=== PATIENT | female | born 1930 | race Caucasian/White ===

== ENCOUNTER 2016-10-09 12:07 | Inpatient (IN) | payer MEDICARE ==
[~2016-10-09] VITALS: Ht 149.9 cm; Wt 38.1 kg
--- NOTE | ~2016-10-09 | DS ---
PATIENT:THERESE BILLINGSLEY :30 MEDICAL RECORD: [id number] DISCHARGE SUMMARY ADMISSION DATE: 10/09/16 DISCHARGE DATE: 10/31/16 DATE OF ADMISSION: 10/09/2016. DATE OF DISCHARGE: 10/31/2016. HISTORY: An 86-year-old single white female who had been referred by her caregiver. The patient had been showing worsened confusion, especially in the evenings. The patient had been exhibiting severe anxiety as well. She had already been started on memory enhancing medications, but confusion had continued to progress. For further details, please see previously dictated history. COURSE IN THE HOSPITAL: The patient was assessed by Dr. Burroughs for medical care. Dr. Burroughs noted the presence of chronic obstructive pulmonary disease, glaucoma, and osteoporosis. From a treatment standpoint, the patient was started on trazodone 150 mg nightly for insomnia. She was maintained on Risperdal dosage and was stabilized at 0.125 mg twice a day. She was given Megace to enhance appetite. She was maintained on Exelon 3 mg b.i.d. and Lexapro 10 mg daily for depressive symptoms. Other medications that were included and included vitamin D supplements, Travatan eye drops, docusate, artificial tears, Ventolin inhaler, and Ara. The patient showed slow, but steady progress in terms of her confusion and anxiety. Case management maintained close contact with her caregiver. Eventually, the decision was made to admit to the [facility]. The patient was discharged in stable condition. FINAL DIAGNOSES: AXIS I: Alzheimer dementia with behavioral disturbance. AXIS II: No diagnosis. AXIS III: Chronic obstructive pulmonary disease, osteoporosis, glaucoma. AXIS IV: Moderate. AXIS V: 40. PLAN: 1. The patient is discharged on current medications. 2. Diet and activities as tolerated. 3. Follow up through primary care physician. TRANSINT:[id number] Voice Confirmation ID: [id number] DOCUMENT ID: [id number] TEJAL ZUNIGA III, MD CC: [id number] DICTATION DATE: 10/31/16 1138 QUALITATIVE FIELD COORDINATOR: 11/01/16 0257 DIS IN 10/31/16 [place] [address]
--- NOTE | 2016-10-09 15:15 | NUR ---
RECEIVED PATIENT FROM HOME, ARRIVED WITH MAGDALENA ALMENDAREZ AND PAID CAREGIVER. ABLE TO VERBALIZE NAME , REQUIRED ASSISTANCE FROM POJuan Diego FOR . PATIENT DOES HAVE HISTORY OF [facility] LIVES AT HOME WITH 24/7 CARE. HAS BE HAVING INCRESED SUNDOWNERS, CONFUSION AND AGITATION WITH ANXIETY. HAS BEEN DIFFICULT FOR THEM TO CARE FOR HER WHEN SHE IS HAVING THESE INCREASD BEHAVIORS. CONSENT FORMS SIGNED PER MAGDALENA, DISCUSSED CODE STATUS, AND MAGDALENA HAS ADVANCED DIRECTIVE FOR DNR, VERBALIZED UNDERSTANDING OF NO CODE STATUS SHE VERBALIZES NO DNR FOR PATIENT.
[2016-10-09 15:30] VITALS: BP 133/73
[2016-10-09] MEDS ORDERED: SEROQUEL50 MG PO ×2 (18:28→21:00)
[2016-10-09] MEDS ORDERED: RIVASTIGMINE1.5 MG PO (18:29)
[2016-10-09] MEDS ORDERED: KLONOPIN1 MG PO ×2 (18:30→20:59)
[2016-10-09] MEDS ORDERED: SYMBICORT 16010.2 GM INH (18:31)
[2016-10-09] MEDS ORDERED: DESERYL100 MG PO ×2 (18:31→20:58)
[2016-10-09] MEDS ORDERED: FEXOFENADINE H180 MG PO (18:32)
[2016-10-09] MEDS ORDERED: SURFAK240 MG PO ×2 (18:32→21:01)
[2016-10-09] MEDS ORDERED: TRAVATAN Z2.5 ML EACH EYE ×2 (18:33→21:01)
[2016-10-09] MEDS ORDERED: OS-CAL 500+D TA1 TAB PO (18:33)
[2016-10-09] MEDS ORDERED: ALENDRONATE SOD70 MG PO (18:34)
[2016-10-09] MEDS ORDERED: MUCINEX600 MG PO ×2 (18:35→20:59)
[2016-10-09] MEDS ORDERED: ACETAMINOPHEN500 M1 PO (18:37)
[2016-10-09] MEDS ORDERED: ARTIFICIAL TEAR15 ML EACH EYE (18:38)
[2016-10-09 18:39] LABS: BASOPHILS 0.5 % (0-2); EOSINOPHILS 0.5 % (0-7); IMMATURE GRANULOCYTES 0.2 % (0-5); LYMPHOCYTES 21.3 % (15-50); MCH 28.7 pg (26.0-34.0); MCHC 32.5 g/dL (31.0-37.0); MCV 88.3 fL (80.0-100.0); MEAN PLATELET VOLUME 10.9 fL (7.4-10.4); MONOCYTES 7.3 % (2-11); NEUTROPHILS 70.2 % (40-80); PLATELET COUNT 208 10x3/uL (130-400); RBC 4.53 10x6/uL (4.00-5.40); RDW 14.8 % (11.5-14.5); WBC 6.5 10x3/uL (4.8-10.8)
[2016-10-09] MEDS ORDERED: PROAIR HFA8.5 GM INH (18:39)
[2016-10-09 18:51] LABS: HEMOGLOBIN A1C 5.8 % (4.8-6.0)
[2016-10-09 19:05] LABS: ALBUMIN 3.8 g/dL (3.4-5.0); ANION GAP 11.6 mmol/L (8-16); BILIRUBIN - TOTAL 0.66 mg/dL (0.2-1.3); CARBON DIOXIDE 29.1 mmol/L (21.0-32.0); CREATININE - SERUM 1.1 mg/dL (0.6-1.3); LDL-HDL RATIO 0.9 ratio (1.5-3.5); POTASSIUM - SERUM 3.7 mmol/L (3.5-5.1); PROTEIN - SERUM 6.6 g/dL (6.4-8.2); THYROID STIMULATING HORMONE 0.17 uIU/mL (0.36-3.74)
[2016-10-09 19:50] VITALS: BP 126/65
[2016-10-10 00:12] VITALS: BP 149/86
[2016-10-10 00:18] VITALS: BP 133/73; BMI 18.6
--- NOTE | 2016-10-10 00:40 | NUR ---
B) Recieved sitting in a wheelchair in the day room , alert and oriented to self, ambulates at times, unsteady gait, I) no medications this shift, monitored for falls and safety, R) resting quietly in bed, P) Continue plan of care.
[2016-10-10 14:20] VITALS: BMI 18.5
[2016-10-10 19:05] VITALS: BP 129/84
--- NOTE | 2016-10-10 23:19 | NUR ---
B) Recieved patient in the day room sitting in a chair, alert and oreinted to self, ambulated from chair to chair at times, unsteady gait, restless at times, I) Administered perscribed medications, monitored for falls and safety, redirected as needed, R) Medication compliant, restless, stays in bed only 2-4 hours at a time, P) Continue plan of care.
--- NOTE | 2016-10-11 05:29 | PSY ---
PATIENT NAME:THERESE BILLINGSLEY MEDICAL RECORD: [id number] : 30 LOCATION:[facility] [address] ADMISSION DATE: 10/09/16 ACCOUNT: [id number] PSYCHIATRIC EVALUATION DATE OF EVALUATION: 10/10/16 FINDINGS: An 86-year-old single white female who was referred by her caregiver. This patient lives at home and has been showing markedly worsened confusion, especially in the evenings. She has had episodes of disorientation and agitation as well. These symptoms have progressively worsened. The patient has been treated by her primary care physician with a variety of any anxiety medications most recently Seroquel had been added along with Klonopin. However, the patient has continued to show evidence of deterioration. The patient had also been started on rivastigmine 1.5 mg twice a day. Because of worsening confusion and agitated behavior, the patient has been admitted. PAST MEDICAL HISTORY: Significant for inhalant allergies and occasional constipation, but otherwise remarkably clear. MEDICATION: At the time of admission included guaifenesin, Ara, artificial tears, travoprost eyedrops, trazodone for insomnia, stool softeners, vitamin C and D supplements and ProAir inhaler p.r.n. FAMILY HISTORY: Noncontributory. SOCIAL HISTORY: The patient does not have any family living nearby. She is cared for by a caregiver. ALLERGIES: THE PATIENT IS ALLERGIC TO SULFONAMIDE ANTIBIOTICS. REVIEW OF SYSTEMS: Noncontributory. MENTAL STATUS: On exam, the patient is pleasant, but clearly extremely confused. She is oriented only to person. When she was told she was in the hospital she seemed genuinely surprised. She seemed to forget this information quite quickly. Mood was somewhat anxious. Affect was shallow, but superficially pleasant. Speech showed latency word finding pauses and flow of thought was tangential. Content of thought was negative for overt psychosis. The patient was oriented only to person. She shows global memory impairment. DIAGNOSTIC IMPRESSION: AXIS I: Alzheimer dementia with behavioral disturbance. AXIS II: No diagnosis. AXIS III: Inhalant allergies, occasional constipation. AXIS IV: Moderate. AXIS V: 38. PLAN: 1. The patient is admitted for reevaluation and medication adjustment. 2. We will give neuropsychological testing. 3. Daily supportive therapy. TRANSINT:[id number] Voice Confirmation ID: [id number] DOCUMENT ID: [id number] TEJAL ZUNIGA III, MD at 0529 CC: [id number] DICTATION DATE: 10/10/16 1144 LUMBER SCALER: 10/10/16 1607 ADM IN [facility] [address] [id number]
[2016-10-11 08:00] VITALS: BP 135/68
[2016-10-11 08:23] LABS: FOLATE (FOLIC ACID) - SERUM >20.0 ng/mL (>3.0); VITAMIN D 25 HYDROXY 40.9 ng/mL (30.0-100.0)
--- NOTE | 2016-10-11 09:00 | NUR ---
B) PATIENT IS ANXIOUS AND VERY CONFUSED, GRABS THIS NURSE EVERY TIME I WALK BY, SHE IS UNSTEADY AND STANDS AND WALKS. I) PROVIDE PRESCRIBED MEDS, REDIRECT NEEDED. R) PATIENT IS COMPLIANT WITH MEDS AND UNIT MILIEU. P) CONTINUE PLAN OF CARE.
[2016-10-11 19:30] VITALS: BP 166/71
--- NOTE | 2016-10-11 22:21 | PN ---
PATIENT:THERESE BILLINGSLEY MEDICAL RECORD: [id number] LOCATION:ЮЛИЯ [facility] ADMISSION DATE: 10/09/16 PROGRESS NOTE DATE OF SERVICE: 10/11/2016 SUBJECTIVE: The patient states that she is being abused. OBJECTIVE: The patient has been rather poorly cooperative. She is very anxious. Eating is rather poor; however, she did sleep fairly well. She does require redirection. On exam, mood is irritable. Affect is brittle. Speech is rapid and almost pressured. Flow of thought is tangential. Content of thought is positive for nonspecific paranoid ideation. Sensorium shows no improvement. ASSESSMENT: No change in diagnosis. PLAN: 1. We will continue with routine benzodiazepines. 2. We will add Megace. 3. Continue other medications and supportive therapy. TRANSINT:[id number] Voice Confirmation ID: [id number] DOCUMENT ID: [id number] TEJAL ZUNIGA III, MD at 2221 CC: [id number] DICTATION DATE: 10/11/16 1151 WASHING MACHINE INSTALLER: 10/11/162050 ADM IN [facility] [address] [place] [address]
--- NOTE | 2016-10-12 00:02 | NUR ---
ATIVAN 0.5 MG PO GIVEN FOR ANXIETY.
[2016-10-12 09:59] VITALS: BP 141/75
--- NOTE | 2016-10-12 13:00 | NUR ---
ALERT AND ORIENTED TO SELF ONLY. PATIENT IS VERY CONFUSED THROUGHOUT THE DAY, NO EVIDENCE OF REORIENTATION. BECOMES ARGUMENTIVE WITH REORIENTATION. UNABLE TO REDIRECT, CONTINUES TO GET OUT OF CHAIR UNASSISTED AND WILL WALK WITH WALKER THEN LEAVE IT, BECOMES ANGRY WITH REDIRECTION FOLDS HER ARMS AND WILL DO OPPOSITE OF INSTRUCTIONS. PACING AROUND EXIT SEEKING. SAFETY MAINTAINED. CONTINUE PLAN OF CARE.
[2016-10-12 19:30] VITALS: BP 166/78
--- NOTE | 2016-10-12 21:30 | NUR ---
ALERT TO SELF ONLY. UNALBE TO GET SUAD TO STAY IN BED, SAT IN RECLINER. SHE IS CONFUSED AND UNABLE TO REDIRECT. SEE ASSESSMENT FLOW SHEET FOR DETAILS. CONTINUE PLAN OF CARE.
--- NOTE | 2016-10-13 06:48 | PN ---
PATIENT:THERESE BILLINGSLEY MEDICAL RECORD: [id number] LOCATION:[address] ADMISSION DATE: 10/09/16 PROGRESS NOTE DATE OF SERVICE: 10/12/2016 SUBJECTIVE: No new complaint. OBJECTIVE: The patient continues to be quite agitated, especially in the evening. She is very confused. She was out of bed a great deal of time last night. She repeatedly stated to staff that she was in her own home and she wanted them to leave. On exam, mood is irritable. Affect is very brittle. Speech is pressured and tangential. Content of thought is positive for delusional ideation due to profound sensorium deficits. Sensorium is unchanged and unimproved. ASSESSMENT: No change in diagnosis. PLAN: 1. Maintain current medication. 2. Continue supportive therapy. TRANSINT:[id number] Voice Confirmation ID: [id number] DOCUMENT ID: [id number] TEAJL ZUNIGA III, MD at 0648 CC: [id number] DICTATION DATE: 10/12/16 1504 MANAGER BOOK: 10/12/16 2122 ADM IN [facility] [address] [place] [address]
[2016-10-13 07:00] VITALS: BP 118/76
--- NOTE | 2016-10-13 18:00 | NUR ---
Patient in dayroom. Slept through breakfast, refused lunch but drank ensure. Confused to place, time and situation. She gets frustrated and tries to get up on her own. She is compliant with medication. Continue to monitor for safety.
[2016-10-13 19:30] VITALS: BP 143/75
[2016-10-13 20:36] LABS: APPEARANCE CLEAR (CLEAR); BILIRUBIN NEGATIVE (NEGATIVE); COLOR YELLOW (YELLOW); EPITHELIAL CELLS 0-5 /hpf (0-5); GLUCOSE NEGATIVE (NEGATIVE); KETONE SMALL mg/dL (NEGATIVE); LEUKOCYTE ESTERASE TRACE (NEGATIVE); NITRITE NEGATIVE (NEGATIVE); PROTEIN NEGATIVE (NEGATIVE); RED CELLS - URINE OCC /hpf (0-5); UROBILINOGEN NORMAL (NORMAL)
[2016-10-13 20:37] LABS: BACTERIA FEW /hpf (NONE SEEN); HYALINE CAST 0-5 /lpf (NONE SEEN); MUCUS <1+ /lpf (NONE SEEN)
--- NOTE | 2016-10-13 21:59 | NUR ---
RECEIVED IN DAYROOM. SITTING IN CHAIR WITH PEERS AT HER SIDE. CALM AND COOPERATIVE WITH CARE AND ASSESSMENTS. NO SIGNS OF AGGRESSION. REDIRECT AND REORIENT NEEDED. ENCOURAGE TO EXPRESS NEEDS. CONTINUE TO SIT QUIETLY. CONTINUE PLAN OF CARE
--- NOTE | 2016-10-14 06:52 | NUR ---
LATE ENTRY FROM 10/10/16 SW SPOKE WITH PT'S POA, ERICKSON, ABOUT PT'S CONDITION AND DISCHARGE PLANNING. ERICKSON VOICED UNDERSTANDING AND STATED SHE IS GLAD STAFF ARE SEEING WHAT PT'S CAREGIVERS WERE SEEING.
[2016-10-14 07:00] VITALS: BP 119/56
--- NOTE | 2016-10-14 09:09 | PN ---
PATIENT:THERESE BILLINGSLEY MEDICAL RECORD: [id number] LOCATION:[address] ADMISSION DATE: 10/09/16 PROGRESS NOTE DATE OF SERVICE: 10/13/2016 SUBJECTIVE: No new complaint. OBJECTIVE: The patient continues to be restless and became extremely agitated. She does require redirection from time to time. On exam, mood is somewhat irritable. Affect is shallow and brittle. Speech is repetitive and tangential. Content of thought is positive for moderate delusional ideation secondary to sensorium deterioration. Sensorium is unchanged. ASSESSMENT: No change in diagnosis. PLAN: 1. Maintain current medication. 2. Continue supportive therapy. TRANSINT:[id number] Voice Confirmation ID: [id number] DOCUMENT ID: [id number] TEJAL ZUNIGA III, MD at 0909 CC: [id number] DICTATION DATE: 10/13/162017 CHAPLAIN RESIDENT: 10/13/162035 ADM IN [id number] [place] [address]
--- NOTE | 2016-10-14 13:32 | NUR ---
Patient anxiety has escalated, distration and other measure ineffective. Scanning vision, rocking sideways in her W/C,about to flip it over. Prn Ativan given for aanxiety.
--- NOTE | 2016-10-14 14:34 | NUR ---
B.) Alert and oriented to self only. Cooperative this am for assessment. I.) Administer medications and monitor compliance. Monitor for any aggression and agitation. Redirect and reorient as need. Encourage group participation. Monitor safety. R.) Compliant with medications. Patient has been uncooperative, angry, agitated and has shown some aggression since 1000, she would not participate in group without constant encouragement, disruptive in group several times, allowed patient to vent, redirects for only brief time, no evidence of reorientation to place, time or situation. Patient is preoccupied with thoughts that she is home and is getting ready to go to work, does not believe she is 86 yrs old, unable to refocus to reality. Requires constant supervision, redirection and distraction. Safety maintained. P.) Continue plan of care.
--- NOTE | 2016-10-14 14:58 | NUR ---
Patient signs of anxiety have subsided, sitting up at table. Patient is calm quiet and resting. Scheduled Risperdal held.
--- NOTE | 2016-10-14 19:45 | NUR ---
RECEIVED IN HALLWAY. SITTING IN A WHEELCHAIR OUTSIDE OF NURSES STATION. CONFUSED. CALM AND COOPERATIVE WITH CARE AND ASSESSMENTS. NO SIGNS OF AGGRESSION. REDIRECT AND REORIENT NEEDED. CONTINUE TO SIT IN HALLWAY. CALM AND COOPERATIVE. CONTINUE PLAN OF CARE
[2016-10-14 20:02] VITALS: BP 149/75
[2016-10-15 07:00] VITALS: BP 112/52
--- NOTE | 2016-10-15 11:01 | PN ---
PATIENT:THERESE BILLINGSLEY MEDICAL RECORD: [id number] LOCATION:ЮЛИЯ [facility] ADMISSION DATE: 10/09/16 PROGRESS NOTE DATE OF SERVICE: 10/14/2016 SUBJECTIVE: No new complaint. OBJECTIVE: The staff reports the patient remains very anxious. She tends to do much worse later in the day, she is more cooperative in the morning. On exam, mood is indeed anxious. Affect is very brittle. Speech is circular and tangential. Content of thought is focused on somatic concerns. Sensorium shows no change. ASSESSMENT: No change in diagnosis. PLAN: 1. Add Risperdal 0.25 mg b.i.d. 2. Continue other medications. 3. Continue supportive therapy. TRANSINT:[id number] Voice Confirmation ID: [id number] DOCUMENT ID: [id number] TEJAL ZUNIGA III, MD at 1101 CC: [id number] DICTATION DATE: 10/14/16 1032 OPERATOR CONTROL ROOM: 10/14/16 1544 ADM IN [place] [id number] [place] [id number]
--- NOTE | 2016-10-15 13:00 | NUR ---
ALERT AND ORIENTED TO SELF ONLY, REDIRECT AND REORIENT NEED. NO EVIDENCE OF REORIENTATION, WAS CALM AND COOPERAIVE EARLIER PART OF MORNING, AFTER LUNCH PATIENT IS AGITATED AND THINKS SHE IS AT HOME AND IS CONSTANTLY TRYING TO GET OUT OF HER W/C, AMBULATED WITH ACTIVITY THERAPIST OVER UNIT HELPED TO RELAX PATIENT. REMAINS EXTREMLY CONFUSED AND IS ARGUMENTIVE AND UNCOOPERATIVE AT TIME, FAVORITE FOODS OFERED THROUGHOUT THE DAY, DID TAKE STRAWBERRY ENSURE BUT DID NOT EAT THE PUDDING. COMPLIANT WITH MEDICATIONS. SAFETY MAINTAINED. CONTINUE PLAN OF CARE.
--- NOTE | 2016-10-15 13:45 | NUR ---
Tech reported that patient seemed to have bite his tongue, patient assessed to have eyes closed. moaning arouses. Vital signs taken BP 142/54, heart rate 84, resp 18 temp 98.1. Patient resisted nurse by pulling his right hand back and would not release his fingers for pulse ox check, encouraged patient and he finally released. pulse ox 96%.
[2016-10-15 19:30] VITALS: BP 129/72
--- NOTE | 2016-10-15 22:24 | NUR ---
RECEIVED IN HALLWAY OUTSIDE OF NURSES STATION. LAYING IN RECLINING CHAIR. CALM AND COOPERATIVE WITH CARE AND ASSESSMENTS. DENIES THOUGHTS OF SELF HARM. ENCOURAGE TO EXPRESS NEEDS. RESTING IN BED WITH EYES CLOSED AT THIS TIME. [id number] PLAN OF CARE
[2016-10-16 09:06] VITALS: BP 117/55
--- NOTE | 2016-10-16 10:05 | NUR ---
B) Rec'd pt in dining room for b'fast, appetite poor, requires frequent redirection not to attempt to ambulate unassisted due to unsteady gait. Takes meds crushed with pudding. I) Meds admin per orders. Group therapy provided. R) Med compliant, mauricio well. Present for group. P) Cont plan of care including medications and group therapy.
--- NOTE | 2016-10-16 10:37 | PN ---
PATIENT:THERESE BILLINGSLEY MEDICAL RECORD: [id number] LOCATION:[address] ADMISSION DATE: 10/09/16 PROGRESS NOTE DATE OF SERVICE: 10/15/2016 SUBJECTIVE: No new complaint. OBJECTIVE: The patient is somewhat less agitated than yesterday. She remains quite confused. She scored only 1 out of 30 on the [facility] Mental Status exam indicating very profound dementia. On exam, mood is somewhat anxious. Affect is rather brittle. Speech is tangential. Content of thought is negative for overt psychosis. Sensorium is unchanged. ASSESSMENT: No change in diagnosis. PLAN: 1. We will get physical therapy consult. 2. Continue all current medications. 3. Continue supportive therapy. TRANSINT:[id number] Voice Confirmation ID: [id number] DOCUMENT ID: [id number] TEJAL ZUNIGA III, MD at 1037 CC: [id number] DICTATION DATE: 10/15/16 1222 ASSISTANT IN NURSING: 10/15/16 2221 ADM IN [address] [place] [address]
--- NOTE | 2016-10-16 14:56 | NUR ---
Nutrition follow-up: Diet: Regular PO intake only ~26% average of last 6 meals Megace started 2 days ago No new wt to assess Receiving Ensure. RDN following.
[2016-10-16 19:30] VITALS: BP 127/62
--- NOTE | 2016-10-17 01:28 | NUR ---
B) Recieved patient in the day room, alert and oriented to self, calm and cooperative, restless at times, I) Administered perscribed medications, monitored for falls and safety, R) Medication compliant, difficultly fall and staying asleep, P) Continue plan of care.
--- NOTE | 2016-10-17 08:37 | NUR ---
B) PATIENT IS AWAKE AND SHE IS CONFUSED, SHE IS ORIENTED TO SELF ONLY. SHE IS NOT DISPLAYING ANXIETY AT THIS TIME. I) PROVIDE PRESCRIBED MEDS, ENCOURAGE AND REMIND PATIENT TO USE HER WALKER. R) PATIENT IS COMPLIANT WITH MEDS. P) CONTINUE PLAN OF CARE.
[2016-10-17 09:28] VITALS: BP 135/67
--- NOTE | 2016-10-17 10:27 | PN ---
PATIENT:THERESE BILLINGSLEY MEDICAL RECORD: [id number] LOCATION:[address] ADMISSION DATE: 10/09/16 PROGRESS NOTE DATE OF SERVICE: 10/16/2016 SUBJECTIVE: The patient states that she wants to leave. OBJECTIVE: The patient continues to be restless. She gets up and down a great deal in the evening. Sleep is somewhat poor. She is, however, doing well in physical therapy and is showing better cooperation with staff. On exam, mood is somewhat anxious. Affect is shallow. Speech is very low in volume and rather repetitive. Content of thought focuses primarily on somatic concerns. Sensorium shows no change. ASSESSMENT: No change in diagnosis. PLAN: 1. We will leave medications at current levels for now. 2. Continue supportive therapy. TRANSINT:[id number] Voice Confirmation ID: [id number] DOCUMENT ID: [id number] TEJAL ZUNIGA III, MD at 1027 CC: [id number] DICTATION DATE: 10/16/16 1110 PRODUCT MARKETING ANALYST: 10/16/16 1511 ADM IN [id number] [place] [address]
[2016-10-17 19:54] VITALS: BP 124/66
--- NOTE | 2016-10-17 21:00 | NUR ---
B) RECEIVED IN DAYROOM SITTING IN RECLINER RESTING WITH EYES CLOSED. CALM AND COOPERATIVE WITH CARE AND ASSESSMENT. I) ADMINISTERED MEDICATIONS CRUSHED IN APPLESAUCE. HAD PROBLEM TAKIMG PILLS. R) COMLIANT TAKING MEDS PRESCRIBED. P) MAINTAIN FALL PRECAUTIONS AND CONTINUE PLAN OF CARE.
[2016-10-18 09:47] VITALS: BP 131/66
--- NOTE | 2016-10-18 14:37 | NUR ---
B) PATIENT IS MORE AWAKE TODAY. SHE IS DRINKING ENSURE AND EATING ICE CREAM, BUT DID NOT EAT BREAKFAST OR LUNCH. I) PROVIDE PRESCRIBED MEDS. R) PATIENT IS COMPLIANT WITH MEDS. P) CONTINUE POC.
[2016-10-18 19:30] VITALS: BP 135/63
--- NOTE | 2016-10-19 03:00 | NUR ---
B) Recieved patient in the day room, alert and oriented to self, calm and cooperative with care and assessment, I) Administered perscribed medications, monitored for falls and safety, R) Medication compliant, resting in gerichair in hallway for safety, P) Continue plan of care.
--- NOTE | 2016-10-19 06:56 | PN ---
PATIENT:THERESE BILLINGSLEY MEDICAL RECORD: [id number] LOCATION:[address] ADMISSION DATE: 10/09/16 PROGRESS NOTE DATE OF SERVICE: 10/18/2016 SUBJECTIVE: The patient's case was discussed with staff. She has no new complaint. OBJECTIVE: The patient is in good behavioral control with limited insight about her condition. She is not eating very well. ASSESSMENT: No change in diagnosis. PLAN: The patient is taking Megace. Unfortunately, she continues to have a poor appetite. Her long-term prognosis is guarded. TRANSINT:[id number] Voice Confirmation ID: [id number] DOCUMENT ID: [id number] NAMAN VÁZQUEZ MD at 0656 CC: [id number] DICTATION DATE: 10/18/16 1422 PRECIPITATOR OPERATOR: 10/18/16 2335 ADM IN [id number] [place] [address]
[2016-10-19 11:50] VITALS: BP 138/54
--- NOTE | 2016-10-19 13:21 | NUR ---
B) PATIENT IS SLEEPY THIS AM, SHE DID NOT AWAKEN TO EAT BREAKFAST OR TAKE MEDS. SHE DID DRINK HER MIGHTY SHAKE AT LUNCH. PATIENT HAS BEEN TOO SLEEPY TO STAND OR TRANSFER. I) PROVIDE PRESCRIBED MEDS. R) PATIENT IS COMPLIANT WITH MEDS AND UNIT MILIEU. P) CONTINUE POC.
[2016-10-19 19:30] VITALS: BP 118/65
--- NOTE | 2016-10-19 23:33 | NUR ---
B) Recieved patient in the day room, alert and oriented to self, very confused, calm and cooperative this shift, I) Administered perscribed medications, monitored for safety and falls, redirected and oriented as needed, R) Medication compliant, no behaviors noted, P) Continue plan of care.
[2016-10-20 07:00] VITALS: BP 119/56
[2016-10-20 12:11] VITALS: Ht 149.9 cm; Wt 38.1 kg
--- NOTE | 2016-10-20 12:12 | NUR ---
ORIENTED TO PERSON ONLY. PT IS MORE AWAKE TODAY AND ABLE TO EXPRESS NEEDS. MEDICATIONS WERE ADJUSTED AND FAMILY HAVE BEEN NOTIFIED OF CHANGES AND PT'S BEHAVIOR. NO AGGRESSION NOTED. PT CONTINUES TO BE RESTLESS AND REDIRECTED NEEDED. MEDICATIONS GIVEN ORDERD. FALL PRECAUTIONS MAINTAINED. KENNA PAD IN PLACE. PT WAS FEEDING HERSELF THIS MORNING BUT STILL REQUIRES SETUP AND ASSISTANCE. WILL CONTINUE TO MONITOR AND CONTINUE WITH PLAN OF CARE.
[2016-10-20 19:30] VITALS: BP 127/67
--- NOTE | 2016-10-20 21:01 | NUR ---
RECEIVED IN DAYROOM. LAYING IN A RECLINING CHAIR WITH EYES OPEN. CONFUSED. ORIENTED TO SELF ONLY. CALM AND COOPERATIVE WITH CARE AND ASSESSMENTS. NO SIGNS OF AGGRESSION. REDIRECT AND REORIENT NEEDED. CONTINUE TO REST QUIETLY IN RECLINER. CONTINUE PLAN OF CARE
[2016-10-21 07:00] VITALS: BP 110/60
--- NOTE | 2016-10-21 10:36 | PN ---
PATIENT:THERESE BILLINGSLEY MEDICAL RECORD: [id number] LOCATION:[address] ADMISSION DATE: 10/09/16 PROGRESS NOTE DATE OF SERVICE: 10/17/2016 SUBJECTIVE: No new complaint. The patient is more drowsy today. She was much more physically active yesterday with ambulation. She slept poorly last night. OBJECTIVE: On exam, mood is euthymic, affect is reserved. Speech is low in volume. Content of thought is negative for overt psychosis. Sensorium shows no change. ASSESSMENT: No change in diagnosis. PLAN: 1. Maintain current medication. 2. Continue supportive therapy. TRANSINT:[id number] Voice Confirmation ID: [id number] DOCUMENT ID: [id number] TEJAL ZUNIGA III, MD at 1036 CC: [id number] DICTATION DATE: 10/17/16 1102 WATER PLUMBER: 10/17/16 2104 ADM IN [facility] [address] [place] [address]
--- NOTE | 2016-10-21 11:39 | NUR ---
ADRIAN SPOKE WITH MAGDALENA, Savanna CARO, TO DISCUSS DISCHARGE PLANNING AND MD RECOMMENDATIONS. ADRIAN RECOMMENDED PT BE PLACED IN MEMORY CARE. GORDO NICHOLS, VERBALIZED UNDERSTANDING. ADRIAN CONTACTED [place] FOR REFERRAL.
--- NOTE | 2016-10-21 14:10 | PN ---
PATIENT:THERESE BILLINGSLEY MEDICAL RECORD: [id number] LOCATION:[address] ADMISSION DATE: 10/09/16 PROGRESS NOTE DATE OF SERVICE: 10/19/2016 SUBJECTIVE: The patient's case was discussed with staff. She has no new complaint. OBJECTIVE: The patient is in good behavioral control with limited insight about her condition. She does tolerate her medicines well. ASSESSMENT: No change in diagnoses. PLAN: Current medicines and therapies have been reviewed, both will be maintained. Long-term prognosis is guarded. I am going to stop her Klonopin secondary to some sedation. TRANSINT:[id number] Voice Confirmation ID: [id number] DOCUMENT ID: [id number] NAMAN VÁZQUEZ MD at 1410 CC: [id number] DICTATION DATE: 10/19/16 1226 ARMATURE INSPECTOR: 10/19/16 2118 ADM IN [place] [id number] [place] [id number]
--- NOTE | 2016-10-21 14:43 | NUR ---
Received this am alert and oriented to name only. Cooperative with assessment this am. Redirect and reorient as need. Minimal assist with meals today. More alert. No aggressionn or agitation. Addison alarm in place. Safety maintained. Continue with plan of care.
[2016-10-21 19:30] VITALS: BP 139/54
--- NOTE | 2016-10-21 19:58 | NUR ---
RECEIVED IN DINGING ARE. SITTING IN RECLINING CHAIR AT TABLE. CONFUSED. CALM AND COOPERATIVE WITH CARE AND ASSESSMENTS. REDRECT AND REORIENT NEEDED. NO SIGNS OF AGGRESSION, CONTINUES TO SIT QUIETLYIN RECLINER. CONTINUE PLAN OF CARE
[2016-10-22 07:00] VITALS: BP 128/64
--- NOTE | 2016-10-22 10:32 | PN ---
PATIENT:THERESE BILLINGSLEY MEDICAL RECORD: [id number] LOCATION:[address] ADMISSION DATE: 10/09/16 PROGRESS NOTE DATE OF SERVICE: 10/21/2016 SUBJECTIVE: No new complaint. OBJECTIVE: The patient remains quite anxious and confused. She is still sleeping poorly. She is restless during the day. On exam, mood is anxious. Affect is very shallow. Speech is repetitive. Content of thought focuses on somatic concerns. Sensorium shows no change. ASSESSMENT: No change in diagnosis. PLAN: 1. Change Risperdal to 0.25 mg 3 times a day. 2. Continue all other medications. 3. Continue supportive therapy. TRANSINT:[id number] Voice Confirmation ID: [id number] DOCUMENT ID: [id number] TEJAL ZUNIGA III, MD at 1032 CC: [id number] DICTATION DATE: 10/21/16 1201 RUG WEAVER: 10/21/16 2242 ADM IN [place] [id number] [place] [address]
--- NOTE | 2016-10-22 11:24 | NUR ---
Alert and oriented to name only, calm and cooperative with care. Smiles and is pleasant. Redirect and reorient as need. No evidence of reorientatation. Fed breakfast and consumed 100 %. No aggression or agitaion. Sleepy throughout the morning. Temo alarm in chair. Safety maintained. Continue plan of care and moitoring.
[2016-10-22 19:30] VITALS: BP 118/57
--- NOTE | 2016-10-22 20:57 | NUR ---
RECEIVED IN DAYROOM. SITTING IN RECLINING CHAIR WITH EYES CLOSED. RESPONDS TO TOUCH. CALM AND COOPERATIVE WITH CARE AND ASSESSMENTS. NO SIGNS OF AGGRESSION. REDIRECT AND REORIENT NEEDED. RESTING IN RECLINER QUIETLY OUTSIDE OF NURSES STATION. CONTINUE PLAN OF CARE
[2016-10-23 07:57] VITALS: BP 138/54
--- NOTE | 2016-10-23 10:41 | PN ---
PATIENT:THERESE BILLINGSLEY MEDICAL RECORD: [id number] LOCATION:[facility] [facility] ADMISSION DATE: 10/09/16 PROGRESS NOTE DATE OF SERVICE: 10/22/2016 SUBJECTIVE: No new complaint. OBJECTIVE: Staff reports the patient has been drowsy during the day, but sleeping poorly at night. Appetite has improved. On exam, mood remains somewhat anxious. Affect is constricted. Speech is tangential. Content of thought unchanged. Sensorium unchanged. ASSESSMENT: No change in diagnosis. PLAN: 1. Decrease Risperdal to 0.125 mg twice a day. 2. Increase trazodone to 150 mg h.s. 3. Maintain other medications and supportive therapy. TRANSINT:[id number] Voice Confirmation ID: [id number] DOCUMENT ID: [id number] TEJAL ZUNIGA III, MD at 1041 CC: [id number] DICTATION DATE: 10/22/16 1157 CATTLE ALLEY WORKER: 10/22/16 2202 ADM IN [place] [id number] [place] [id number]
--- NOTE | 2016-10-23 17:22 | NUR ---
Alert and oriented to name only, pleasant and coopertative with assessment. Redirect and reorient. No aggression. more alert today, smiles and talks softly. Calm with no agitation or delusions noted. Safety maintained, continue plan of care.
[2016-10-23 20:00] VITALS: BP 134/69
--- NOTE | 2016-10-24 01:31 | NUR ---
B) Recieved sitting in a gerichair in the day room, alert and oriented to self, very confused, talks quietly at times, repeats parts of staff's conversations at times, I) Administered perscribed medications crushed, monitored for safety, kept patient in the hallway for safety, R) Medication compliant, pleasant and friendly, P) Continue plan of care.
[2016-10-24 08:00] VITALS: BP 131/50
--- NOTE | 2016-10-24 10:17 | PN ---
PATIENT:THERESE BILLINGSLEY MEDICAL RECORD: [id number] LOCATION:[facility] ADMISSION DATE: 10/09/16 PROGRESS NOTE DATE OF SERVICE: 10/23/2016 SUBJECTIVE: No new complaint is noted. OBJECTIVE: The patient is more alert today. She is tolerating medication change quite well. On exam, mood remains anxious. Affect is shallow. Speech remains tangential. Content of thought focuses on somatic concerns. Sensorium shows no change. ASSESSMENT: No change in diagnosis. PLAN: 1. Maintain all current medication. 2. Continue supportive therapy. TRANSINT:[id number] Voice Confirmation ID: [id number] DOCUMENT ID: [id number] TEJAL ZUNIGA III, MD at 1017 CC: [id number] DICTATION DATE: 10/23/16 1148 AD OPERATIONS COORDINATOR: 10/23/161947 ADM IN [facility] [address] [place] [id number]
--- NOTE | 2016-10-24 14:55 | NUR ---
PT CONTINUES TO BE LETHARGIC BUT DOES AWAKEN FOR MEALS. PT IS A FEEDER. NO AGGRESSION NOTED. ORIENTED TO PERSON ONLY. MEDICATIONS HELD DUE TO PT BEING LETHARGIC. FALL PRECAUTIONS MAINTAINED. KENNA IN PLACE. PT ON LINDA MAT TO REDUCE BREAKDOWN RISK. WILL CONTINUE TO MONITOR AND CONTINUE WITH PLAN OF CARE.
[2016-10-24 19:20] VITALS: BP 100/60
--- NOTE | 2016-10-24 20:00 | NUR ---
B) RECEIVED IN DAYROOM SITTING IN W/C AT TABLE. ALERT TO SELF ONLY. CALM AND COOPERATIVE WITH CARE. SPEAKS SOFTLY, BUT DIFFICULT TO UNDERSTAND. I) ADMINISTER MEDICATIONS CRUSHED IN APPLESAUCE, VSS, ASSESSMENT COMPLETED PER FLOW SHEET. R) COMPLIANT TAKING ORDERED MEDICATIONS. MAINTAIN SAFETY. CONTINUE POC.
[2016-10-25 09:25] VITALS: BP 145/63
--- NOTE | 2016-10-25 09:38 | PN ---
PATIENT:THERESE BILLINGSLEY MEDICAL RECORD: [id number] LOCATION:[address] ADMISSION DATE: 10/09/16 PROGRESS NOTE DATE OF SERVICE: 10/24/2016 SUBJECTIVE: No new complaint. OBJECTIVE: The patient continues to be somewhat drowsy in the mornings. She is not sleeping well at night, but a total sleep time has been adequate. On exam, mood is somewhat irritable. Affect is shallow and brittle. Speech is tangential. Content of thought is negative for overt psychosis. Sensorium is unchanged. ASSESSMENT: No change in diagnosis. PLAN: 1. Maintain current medication. 2. Continue supportive therapy. TRANSINT:[id number] Voice Confirmation ID: [id number] DOCUMENT ID: [id number] TEJAL ZUNIGA III, MD at 0938 CC: [id number] DICTATION DATE: 10/24/16 1204 COMMISSIONS COORDINATOR: 10/24/16 2230 ADM IN [place] [id number] [place] [id number]
--- NOTE | 2016-10-25 14:59 | NUR ---
Nutrition follow-up: Diet: Regular with MS TID and PRN PO intake has improved since starting Megace; po intake now ~65% average of last 6 meals Labs reviewed No new wt to assess RDN following.
--- NOTE | 2016-10-25 15:05 | NUR ---
B) PATIENT IS AWAKE AND ALERT TODAY, SHE IS STANDING ON HER OWN. [facility] DID COME AND ASSESS HER THIS AM. PATIENT CAN STAND WITH STAFF. I) PROVIDE PRESCRIBED MEDS. R) PATIENT IS COMPLIANT WITH MEDS. SHE IS CONFUSED, ORIENTED TO SELF ONLY. P) CONTINUE PLAN OF CARE.
[2016-10-25 20:12] VITALS: BP 135/61
--- NOTE | 2016-10-26 06:00 | NUR ---
ASSESSMENT COMPLETED PER FLOW SHEET. SLEPT FAIRLY WELL WITH RADIO ON AT BEDSIDE. NO SI TONIGHT. CONTRACTS FOR SAFETY.
--- NOTE | 2016-10-26 06:00 | NUR ---
ASSESSMENT COMPLETED PER FLOW SHEET. SLEPT FAIRLY IN HER ROOM TONIGHT.
[2016-10-26 08:37] VITALS: BP 119/54
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
--- NOTE | 2016-10-26 16:00 | NUR ---
PATIENT IS HAVING DIFFICULTY PASSING A BOWEL MOVEMENT. DID ASSIST PATIENT BY REMOVING AN IMPACTION OF BOWEL. PATIENT FELT BETTER AFTER.
--- NOTE | 2016-10-26 17:00 | NUR ---
PATIENT HAS STARTED TO , SHE IS ASKING ABOUT HER CAR AND SHE BELIEVES THIS IS HER HOUSE AND SHE IS READY TO GO DRIVING.
[2016-10-26 19:30] VITALS: BP 126/63
--- NOTE | 2016-10-26 23:54 | NUR ---
B) Recieved patient in the day room alert and oriented to self, very confused, sitting at the table with the MHT, I) Adminstered Perscribed medications, monitored for falls and safety, R) Medication compliant, pleasant and cooperative, P) Continue plan of care.
[2016-10-27 07:00] VITALS: BP 109/55
--- NOTE | 2016-10-27 14:13 | NUR ---
RECEIVED THIS AM IN BED.IS CONFUSED BUT COOPERATIVE.COMPLIANT WITH MEDS.COOPERATIVE WITH STAFF AND PEERS.MEDS CRUSHED AND GIVEN IN APPLESAUCE.WILL CONTINUE WITH PLAN OF CARE,MONITOR FOR SAFETY AND CHANGE.
[2016-10-27 19:30] VITALS: BP 138/76
--- NOTE | 2016-10-27 19:49 | NUR ---
RECEIVED IN DAYROOM. SITTING IN RECLINING CHAIR WITH STAFF AND PEERS AT HER SIDE. CALM AND COOPERATIVE WITH CARE AND ASSESSMENT. REDIRECT AND REORIENT NEEDED. CONTINUES TO REST QUIETLY IN RECLINING CHAIR. CONTINUE PLAN OF CARE
[2016-10-28 07:00] VITALS: BP 119/47
--- NOTE | 2016-10-28 09:00 | PN ---
PATIENT:THERESE BILLINGSLEY MEDICAL RECORD: [id number] LOCATION:[address] ADMISSION DATE: 10/09/16 PROGRESS NOTE DATE OF SERVICE: 10/25/2016 SUBJECTIVE: No new complaint. OBJECTIVE: The patient continues to show considerable confusion. Representatives from [place] visited yesterday and will come back early next week. They will be assisting with placement. On exam, mood is anxious, affect is shallow. Speech is repetitive. Content of thought focuses primarily on somatic concerns. Sensorium shows no change. ASSESSMENT: No change in diagnosis. PLAN: 1. Maintain current medications. 2. Continue supportive therapy. TRANSINT:[id number] Voice Confirmation ID: [id number] DOCUMENT ID: [id number] TEJAL ZUNIGA III, MD at 0900 CC: [id number] DICTATION DATE: 10/25/16 1125 DIRECTOR OF ANNUAL GIVING: 10/25/16 2107 ADM IN [facility] [address] [place] [address]
--- NOTE | 2016-10-28 12:25 | NUR ---
Received this am alert and smiling at staff pleasant calm mood. Redirect and reorient as need. Cooperative with care, more alert today oriented to name and somewhat to place. Good behavior control, sitting up in WC observing others. No aggression. Chair alarm in place. Safety maintained. Continue with plan of care.
[2016-10-28 19:30] VITALS: BP 180/60
--- NOTE | 2016-10-28 19:34 | NUR ---
RECEIVED IN HALLWAY. SITTING IN RECLINING CHAIR OUTSIDE OF HALLWAY. CALM AND COOPERATIVE WITH CARE AND ASSESSMENTS. IN GOOD SPIRITS. ENCOURAGE TO EXPRESS NEEDS. CONTINUES TO SIT QUIETLY. CONTINUE PLAN OF CARE
[2016-10-29 10:14] VITALS: BP 115/60
--- NOTE | 2016-10-29 10:15 | PN ---
PATIENT:THERESE BILLINGSLEY MEDICAL RECORD: [id number] LOCATION:[facility] [address] ADMISSION DATE: 10/09/16 PROGRESS NOTE DATE OF SERVICE: 10/28/2016 SUBJECTIVE: No new complaint. OBJECTIVE: The patient is doing better. Senthil will be reevaluating her today or tomorrow. She is tolerating medications well. On exam, mood is euthymic, affect is pleasant. Speech is still tangential, but overall more fluent. Content of thought is negative for overt psychosis. Sensorium unchanged. ASSESSMENT: No change in diagnosis. PLAN: 1. Maintain current medication. 2. Continue supportive therapy. TRANSINT:[id number] Voice Confirmation ID: [id number] DOCUMENT ID: [id number] TEJAL ZUNIGA III, MD at 1015 CC: [id number] DICTATION DATE: 10/28/16 1037 REGISTERED PHYSICAL THERAPIST: 10/28/16 1210 ADM IN [place] [id number] [place] [id number]
[2016-10-29] MEDS ORDERED: LEXAPRO10 MG PO (11:12)
[2016-10-29] MEDS ORDERED: RIVASTIGMINE1.5 MG PO (11:12)
[2016-10-29] MEDS ORDERED: MEGACE40 MG PO (11:12)
[2016-10-29] MEDS ORDERED: TRAZODONE HCL150 MG PO (11:13)
[2016-10-29] MEDS ORDERED: FLORAJEN3 CAPS460 MG PO (11:14)
--- NOTE | 2016-10-29 14:42 | NUR ---
ORIENTED TO SELF ONLY.COMPLIANT WITH STAFF AND MEDS.NO AGGRESSION OBSERVED.WILL CONTINUE WITH PLAN OF CARE,MONITOR FOR CHANGES AND SAFETY.
[2016-10-29 19:43] VITALS: BP 147/75
--- NOTE | 2016-10-29 19:49 | NUR ---
RECEIVED IN DAYROOM. SITTING IN A RECLINING CHAIR WITH PEERS AT HER SIDE. CALM AND COOPERATIVE WITH PEERS AND ASSESSMENTS. DENIES THOUGHTS OF SELF HARM. IN GOOD SPIRITS. CONTINUES TO REST QUIETLY. CONTINUE PLAN OF CARE
[2016-10-30 08:49] VITALS: BP 120/59
--- NOTE | 2016-10-30 10:00 | NUR ---
B) Rec'd pt in day rooom for a.m. med pass, alert, confused, takes meds crushed with pudding, med compliant, calm, cooperative. I) Meds admin per orders, group therapy provided. R) Porter meds well with no s/s adverse reaction, present for group. P) Cont current POC including meds and group activity.
--- NOTE | 2016-10-30 11:42 | PN ---
PATIENT:THERESE BILLINGSLEY MEDICAL RECORD: [id number] LOCATION:[address] ADMISSION DATE: 10/09/16 PROGRESS NOTE DATE OF SERVICE: 10/29/2016 SUBJECTIVE: No new complaint. OBJECTIVE: The patient has continued to do well. She is tolerating medications. Mood has stabilized. On exam, mood is for the most part euthymic. Affect still shallow. Speech is tangential. Content of thought is unchanged. Sensorium unchanged. ASSESSMENT: No change in diagnosis. PLAN: 1. Maintain all current medications. 2. Anticipate discharge tomorrow. TRANSINT:[id number] Voice Confirmation ID: [id number] DOCUMENT ID: [id number] TEJAL ZUNIGA III, MD at 1142 CC: [id number] DICTATION DATE: 10/29/16 1116 SOFTWARE ENGINEER BACKEND: 10/29/16 193 ADM IN [facility] [address] [place] [address]
[2016-10-30 20:00] VITALS: BP 151/83
--- NOTE | 2016-10-31 00:48 | NUR ---
B) Recieved patient in the day room in a gerichair, alert and oriented to self, calm and friendly, restless at times, I) Administered perscribed medications, monitored for safety and falls, R) Medication compliant, P) Continue plan of care.
[2016-10-31 08:30] VITALS: BP 129/66
--- NOTE | 2016-10-31 09:30 | NUR ---
B) PATIENT IS AWAKE AND ALERT, SHE IS PLEASANT, SMILING AND TALKATIVE, SHE DID NOT SLEP LAST NIGHT. PATIENT CAN AMBULATE WITH A WALKER, SHE HAS POOR SHORT TERM MEMORY RECALL. I) PROVIDE PRESCRIBED MEDS. R) PATIENT IS COMPLIANT WITH MEDS. P) CONTINUE PLAN OF CARE.
--- NOTE | 2016-10-31 09:46 | PN ---
PATIENT:THERESE BILLINGSLEY MEDICAL RECORD: [id number] LOCATION:[address] ADMISSION DATE: 10/09/16 PROGRESS NOTE DATE OF SERVICE: 10/30/2016 SUBJECTIVE: No new complaint noted. OBJECTIVE: The patient is continuing to do well. She is tolerating medications without difficulty. Discharge had originally been planned for today, but had to be changed until tomorrow. On exam, mood is euthymic. Affect is bland. Speech is somewhat terse. Content of thought is unchanged. Sensorium unchanged. ASSESSMENT: No change in diagnosis. PLAN: 1. Continue current medications. 2. Continue supportive therapy. TRANSINT:[id number] Voice Confirmation ID: [id number] DOCUMENT ID: [id number] TEJAL ZUNIGA III, MD at 0946 CC: [id number] DICTATION DATE: 10/30/16 1252 TIN PLATER: 10/30/162006 ADM IN [facility] [address] [place] [address]
--- NOTE | 2016-10-31 10:34 | NUR ---
Nutrition Follow Up: Pt is eating 19% meal avg on a regular diet. She is receiving Mighty Shakes TID. +BM 10/30/16. No new wt to assess. Meds reviewed including Megace. No new labs to assess. Pt with very poor po intake. Rec continue appetite stimulant. Rec obtaining current wt on pt. Rec continue current diet. Will continue to send Mighty Shakes TID, honor food preferences. RD following.
--- NOTE | 2016-10-31 11:17 | NUR ---
FAXED D/C ORDERS AND MAR TO [facility], CALLED MEDS TO [facility].
--- NOTE | 2016-10-31 14:20 | NUR ---
PATIENT D/C'D FROM UNIT. BELONGINGS AND A HARD COPY OF D/C ORDERS AND MAR SENT WITH SAND MOLDER.
== END 2016-10-31 14:25 | disposition home or self-care (01) | DRG 57 ==
LOC: D.PSYCH 12:07
PROVIDERS: ADMIT Psychiatry & Neurology Psychiatry
DX: G30.9 Alzheimer's disease, unspecified (principal); F02.81 Dementia in other diseases classified elsewhere, unspecified severity, with behavioral disturbance; F32.9 Major depressive disorder, single episode, unspecified; F41.9 Anxiety disorder, unspecified; J44.9 Chronic obstructive pulmonary disease, unspecified; M81.0 Age-related osteoporosis without current pathological fracture; H40.9 Unspecified glaucoma; K59.00 Constipation, unspecified

== ENCOUNTER 2017-06-22 11:02 | Emergency (ER) | payer MEDICARE ==
[2016-10-20 12:11] VITALS: BMI 16.9
[~2017-06-22 11:02] MED LIST: ACETAMINOPHEN500 M1 PO; ALENDRONATE SOD70 MG PO; ARTIFICIAL TEAR15 ML EACH EYE; DESERYL100 MG PO; FEXOFENADINE H180 MG PO; FLORAJEN3 CAPS460 MG PO; KLONOPIN1 MG PO; LEXAPRO10 MG PO; MEGACE40 MG PO; MUCINEX600 MG PO; OS-CAL 500+D TA1 TAB PO; PROAIR HFA8.5 GM INH; RIVASTIGMINE1.5 MG PO; SEROQUEL50 MG PO; SURFAK240 MG PO; SYMBICORT 16010.2 GM INH; TRAVATAN Z2.5 ML EACH EYE; TRAZODONE HCL150 MG PO
== END 2017-06-22 12:30 ==
LOC: D.ER 11:02
DX: S00.03XA Contusion of scalp, initial encounter (principal); W19.XXXA Unspecified fall, initial encounter; Y93.89 Activity, other specified; Y92.129 Unspecified place in nursing home as the place of occurrence of the external cause; J44.9 Chronic obstructive pulmonary disease, unspecified; F03.90 Unspecified dementia, unspecified severity, without behavioral disturbance, psychotic disturbance, mood disturbance, and anxiety; G30.9 Alzheimer's disease, unspecified; F02.80 Dementia in other diseases classified elsewhere, unspecified severity, without behavioral disturbance, psychotic disturbance, mood disturbance, and anxiety